=== PATIENT | female | born 1970 | race Caucasian/White ===

== ENCOUNTER 2021-12-02 16:28 | Emergency (ER) | payer OTHER, SELFPAY ==
[2021-12-02 16:50] VITALS: BP 107/54; PULSE 100; RESP 18; TEMP 37.4; O2SAT 99
--- NOTE | 2021-12-02 17:08 | ED.GENADULT ---
HPI - General Adult General Chief complaint: Skin/Abscess/Foreign Body Stated complaint: wasp sting History of Present Illness HPI narrative: Patient is a 51-year-old female who presents to the express care via POV for evaluation of a wasp sting on right fourth finger that occurred just prior to arrival. Patient reports her right ring finger is swollen and painful. Ice provides moderate relief. Nothing worsens symptoms. Related Data Home Medications Medication Instructions Recorded Confirmed cholecalciferol (vitamin D3) 1,250 1,250 mcg WEEKLY 12/02/21 12/02/21 mcg (50,000 unit) capsule metoprolol tartrate 50 mg tablet 50 mg TID 12/02/21 12/02/21 rizatriptan 10 mg tablet 10 mg DIRECTED 12/02/21 12/02/21 topiramate 25 mg tablet 25 mg BID 12/02/21 12/02/21 Allergies Allergy/AdvReac Type Severity Reaction Status Date / Time Penicillins AdvReac Nausea and Verified 12/02/21 16:58 Vomiting Review of Systems Review of Systems: Denies recent/new changes in soaps, perfumes, lotions, detergents, and shampoos. Denies working with chemicals. Denies new or changes in medications/foods. Pertinent negatives fever, chills, sweats, change in appetite, malaise, poor p.o. intake, recent weight loss, change in appetite, myalgias, lymphadenopathy, LOC, dizziness, burning sensation, petechiae, blistering, erythema, pruritus, streaking, warmth, lesions, easy bruising, lip/tongue/throat swelling, facial swelling, abdominal pain, nausea, vomiting, numbness, tingling, loss of sensation, cough, wheezing, chest pain, and heart palpitations/murmurs. Course Course Level of Care: Express Care Visit Vital Signs Vital signs: Vital Signs Temperature 99.3 F 12/02/21 16:50 Pulse Rate 100 12/02/21 16:50 Respiratory Rate 18 12/02/21 16:50 Blood Pressure 107/54 L 12/02/21 16:50 Pulse Oximetry 99 12/02/21 16:50 Oxygen Delivery Room Air 12/02/21 16:50 Temperature 99.3 F 12/02/21 16:50 Pulse Rate 100 12/02/21 16:50 Respiratory Rate 18 12/02/21 16:50 Blood Pressure 107/54 L 12/02/21 16:50 Pulse Oximetry 99 12/02/21 16:50 Oxygen Delivery Room Air 12/02/21 16:50 Medical Decision Making Vital Signs Vital Signs: Vital Signs Temperature 99.3 F 12/02/21 16:50 Pulse Rate 100 12/02/21 16:50 Respiratory Rate 18 12/02/21 16:50 Blood Pressure 107/54 L 12/02/21 16:50 Pulse Oximetry 99 12/02/21 16:50 Oxygen Delivery Room Air 12/02/21 16:50 Temperature 99.3 F 12/02/21 16:50 Pulse Rate 100 12/02/21 16:50 Respiratory Rate 18 12/02/21 16:50 Blood Pressure 107/54 L 12/02/21 16:50 Pulse Oximetry 99 12/02/21 16:50 Oxygen Delivery Room Air 12/02/21 16:50 Critical Care Time Critical Care Time Critical Care Time: No Discharge Plan Discharge Clinical Impression: Wasp sting Qualifiers: Encounter type: initial encounter Injury intent: accidental or unintentional Qualified Code(s): T63.461A - Toxic effect of venom of wasps, accidental (unintentional), initial encounter Patient Disposition: Home, Self-Care Condition: Stable Instructions: Insect Bite or Sting (ED) Additional Instructions: See discharge instructions for detailed information. If you have been prescribed a medication today, be sure to take/use the medication only as prescribed. You may take Tylenol/ibuprofen as needed for pain and swelling. Take only as directed per packaging label. You may use Benadryl Cream and Roma for allergy symptoms as well. Follow-up with your primary care provider as recommended. Prescriptions: New triamcinolone acetonide 0.5 % cream 1 applic topical BID Qty: 15 0RF No Action rizatriptan 10 mg tablet 10 mg DIRECTED topiramate 25 mg tablet 25 mg BID metoprolol tartrate 50 mg tablet 50 mg TID cholecalciferol (vitamin D3) 1,250 mcg (50,000 unit) capsule 1,250 mcg WEEKLY Follow-up/Referrals: [facility]
== END 2021-12-02 17:12 | disposition home or self-care (01) ==
PROVIDERS: Emergency Provider Nurse Practitioner Family
DX: T63.461A Toxic effect of venom of wasps, accidental (unintentional), initial encounter (principal); E55.9 Vitamin D deficiency, unspecified
CPT/HCPCS: 99203; G0463